=== PATIENT | female | born 1965 | race African-American/Black ===

== ENCOUNTER 2016-10-21 15:35 | Emergency (ER) | payer OTHER ==
[~2016-10-21] VITALS: Ht 165.1 cm; Wt 100.0 kg
[~2016-10-21 15:35] MED LIST: ALBU1AER INH; ALBU8I INH; CENTTAB9 PO; FISH500C PO; GLUCTAB PO; IBUP800 PO; MAXZ25 PO; OMEP20TA PO; POTA-243 PO; PRAV80 PO; SYMB80AE INH; VASO10TA8 PO
[2016-10-21 15:38] VITALS: BP 141/84; PULSE 84; RESP 16; TEMP 97.8; O2SAT 98
--- NOTE | 2016-10-21 17:13 | PD ---
HPI Chief Complaint: Pain: Acute or Chronic Time Seen by Provider: 17:12 Travel History International Travel<30 days: No Contact w/Intl Traveler<30days: No Traveled to known affect area: No History of Present Illness HPI Patient comes in for evaluation of pain and swelling in her right foot that began after using a foot massager yesterday. Patient has pain is a discomfort in the medial aspect of her right foot is worse with walking. Patient denies doing anything for this. Denies any numbness and tingling or direct trauma. PFSH Past Medical History Arthritis: Yes Asthma: Yes Autoimmune Disease: No Blood Disorders: No Anxiety: Yes Depression: No Heart Rhythm Problems: Yes (MURMUR) Cancer: No Cardiovascular Problems: Yes (htn) High Cholesterol: Yes Chemotherapy: No Chest Pain: Yes Congestive Heart Failure: No COPD: No Cerebrovascular Accident: No Coronary Artery Disease: Yes Diabetes: Yes Diminished Hearing: No Endocrine: Yes Gastrointestinal Disorders: Yes Genitourinary: No Headaches: Yes Hepatitis: No Hiatal Hernia: No Hypertension: Yes Immune Disorder: No Musculoskeletal: Yes Neurologic: No Psychiatric: No Reproductive: No Respiratory: Yes (LUNG CA R LUNG, LOWER LOBE REMOVED 2004) Immunizations Current: Yes Myocardial Infarction: No Radiation Therapy: No Schizophrenia: Yes Seizures: Yes Sickle Cell Disease: Yes Sleep Apnea: Yes (USES CLFEX) Thyroid Disease: No PNEUMOCCOCAL Vaccine (Year): 2 : 1 Para: 0 Miscarriage: 0 : 0 Past Surgical History Abdominal Surgery: No AICD: No Appendectomy: Yes Cardiac Surgery: No Ear Surgery: No Endocrine Surgery: No Eye Surgery: No Genitourinary Surgery: Yes Gynecologic Surgery: Yes (PARTIAL HYSTERECTOMY (1993), FULL HYSTERECTOMY (2011) ) Hysterectomy: Yes Joint Replacement: Yes (BILATERAL TOTAL KNEE REPLACEMENT) Neurologic Surgery: No Oral Surgery: No Pacemaker: No Thoracic Surgery: Yes (RIGHT LUNG BX AND REMOVAL LOWER LOBE 2004) Other Surgery: Yes Social History Alcohol Use: No Tobacco Use: No (QUIT) Substance Use: No Allergies-Medications (Allergen,Severity, Reaction): Coded Allergies: Latex (Verified Allergy, Severe, 10/21/16) Morphine (Verified Allergy, Severe, HIVES, 10/21/16) Oxycodone (Verified Allergy, Severe, HALLUCINATION, 10/21/16) *MDRO Multi-Drug Resistant Organism (Verified Allergy, Unknown, 10/21/16) MRSA 08/2013 Reported Meds & Prescriptions Reported Meds & Active Scripts Active Naprosyn (Naproxen) 500 Mg Tab 500 Mg PO Q12HR PRN Review of Systems Except as stated in HPI: all other systems reviewed are Neg Physical Exam Narrative GENERAL: Well-developed, overly nourished, in no acute distress, and non-ill appearing. SKIN: Warm and dry. HEAD: Atraumatic. Normocephalic. EYES: Pupils equal and round. EOMI. No scleral icterus. No injection or drainage. ENT: No nasal bleeding or discharge. Mucous membranes pink and moist. NECK: Trachea midline. Supple. No nuclear rigidity. CARDIOVASCULAR: Dorsal pulses 2+, intact, and equal bilaterally. Capillary refill less than 2 seconds. RESPIRATORY: No accessory muscle use. No respiratory distress. MUSCULOSKELETAL: No obvious deformities. No clubbing. No cyanosis. No edema. Full range of motion. Ankle: Neagative anterior draw and Napier test. Negative Ann Marie's sign. No laxity noted with passive inversion and eversion of BL ankles. Negative squeeze test. Pulses equal BL distal to injury. Capillary refill less than 2 seconds distal to injury and equal BL. Sensation equal BL 1st web space. FROM of toes distal to injury and equal BL. NV intact distal to injury and equal BL. Dorsal pulses equal BL. Tenderness and soft tissue swelling noted medial aspect of right foot proximally. NEUROLOGICAL: Awake and alert. No obvious cranial nerve deficits. Motor grossly within normal limits. Normal speech. PSYCHIATRIC: Appropriate mood and affect; insight and judgment normal. Data Data Last Documented VS Vital Signs Date Time Temp Pulse Resp B/P Pulse Ox O2 Delivery O2 Flow Rate FiO2 10/21/16 15:38 97.8 84 16 141/84 98 Orders Foot, Complete ([id number]) (10/21/16 ) Ice/Cold Pack (10/21/16 17:11) Splint Or Brace Apply/Monitor (10/21/16 18:04) MDM Medical Decision Making Medical Screen Exam Complete: Yes Emergency Medical Condition: Yes Differential Diagnosis Fracture, strain, contusion, other Narrative Course There is no clinical evidence for fracture. There is no clinical evidence to suspect bony injury by exam. Radiographic examination revealed no fracture seen at this time. No obvious ligamental injury or internal derangement is noted at this time. The distal extremity appears neurovascularly intact, without evidence of neurovascular injury nor compartment syndrome. Tendon exam also was intact. The effected limb was splinted. The patient was discharged on pain medication along with sprain and splint care instructions and given warnings for vascular compromise. The patient is to follow up with primary care provider and/or merchandising team lead. The patient agrees with plan. Patient in no obvious distress upon re-evaluation. All pertinent Radiology result(s) discussed with patient. Patient was asked if they wanted to speak to my attending, which the patient did not wish to do at this time. Any questions/ concerns in reference to patient diagnosis/condition discussed and clarified prior to patient's discharge. Reinforced sheer importance of close follow up with patient's primary physician or primary care clinic. Instructed patient to return to ED immediately, if symptoms return/worsen. Pt showed understanding of above instructions. Further instructions and recommendations were detailed in discharge paperwork. Pt ambulated without difficulty out of ED at discharge. Diagnosis Primary Impression: Right foot pain Referrals: Kary Li DPM Patient Instructions: Foot Sprain (ED), General Instructions Additional Instructions: Follow-up with your primary care physician and/or merchandising team lead in 3-5 days reevaluation. Take all medication as prescribed. Apply ice affected area 20 minutes prior as needed for pain. Wear Rusty wrap as needed for comfort. Return to the emergency department if symptoms get worse. Med/Other Pt SpecificInfo: Prescription(s) given Scripts Naproxen (Naprosyn)500 Mg [id number] Mg PO Q12HR PRN (PAIN SCALE 1 TO 10) #10 TAB Ref 0 Prov:Travis Velasco MD 10/21/16 Disposition: 01 DISCHARGE HOME Condition: Stable Jordan Dyer Oct 21, 2016 17:13
--- NOTE | 2016-10-21 17:51 | RADRPT ---
EXAM DATE/TIME: 10/21/2016 17:35 [facility] COMPARISON: No previous studies available for comparison. INDICATIONS : Right foot pain post twisting. MEDICAL HISTORY : None. SURGICAL HISTORY : None. ENCOUNTER: Initial ACUITY: 1 day PAIN SCORE: 4/10 LOCATION: Right medial foot. FINDINGS: Diffuse soft tissue swelling is noted around the foot. There are mild primary degenerative changes of the metatarsal bones. No acute fracture or joint dislocation. There is hallux valgus angulation at t he first metatarsal-phalangeal joint. No foreign bodies are demonstrated. Small heel spur. CONCLUSION: Diffuse nonspecific soft tissue swelling around the foot. No acute fracture or dislocation. Madi Thomson MD on October 21, 2016 at 17:48 Board Certified Radiologist. This report was verified electronically.
[2016-10-21] MEDS ORDERED: NAPR500 PO (18:06)
== END 2016-10-21 18:24 | disposition home or self-care (01) ==
LOC: NEPB 15:35
DX: M79.671 Pain in right foot (principal); M79.89 Other specified soft tissue disorders; J45.909 Unspecified asthma, uncomplicated; E78.00 Pure hypercholesterolemia, unspecified; I10 Essential (primary) hypertension
CPT/HCPCS: 73630; 99283

== ENCOUNTER 2016-12-19 12:03 | Emergency (ER) | payer OTHER ==
[~2016-12-19] VITALS: Ht 165.1 cm; Wt 97.5 kg
[~2016-12-19 12:03] MED LIST changes: -ALBU1AER INH; -ALBU8I INH; -CENTTAB9 PO; -FISH500C PO; -GLUCTAB PO; -IBUP800 PO; -MAXZ25 PO; +NAPR500 PO; -OMEP20TA PO; -POTA-243 PO; -PRAV80 PO; -SYMB80AE INH; -VASO10TA8 PO
[2016-12-19 12:06] VITALS: BP 209/98; PULSE 87; RESP 18; TEMP 97.9; O2SAT 98
--- NOTE | 2016-12-19 12:21 | PD ---
Physical Exam Time Seen by Provider: 12:19 Narrative 51 yo F c/o left sided upper and lower back pain from moving dressers on the job yesterday. Denies fever, vomiting. Has HTN and did not take BP meds this morning. Patient stable. Patient seen in triage. Awaiting bed placement. Data Data Last Documented VS Vital Signs Date Time Temp Pulse Resp B/P Pulse Ox O2 Delivery O2 Flow Rate FiO2 12/19/16 12:06 97.9 87 18 209/98 98 MDM Supervised Visit with CHAPIN: Melissa Cordon Dec 19, 2016 12:21
[2016-12-19] MEDS ORDERED: DICL75TA PO (12:43)
[2016-12-19] MEDS ORDERED: ENAL10TA PO (12:43)
[2016-12-19] MEDS ORDERED: ATOR40TA16 PO (12:43)
[2016-12-19] MEDS ORDERED: OMEP20TA PO (12:43)
[2016-12-19] MEDS ORDERED: METF500T PO (12:43)
[2016-12-19] MEDS ORDERED: TRIA37.5 PO (12:43)
[2016-12-19 12:46] VITALS: BP 163/81; PULSE 89; RESP 18; O2SAT 97
[2016-12-19] MEDS ORDERED: KETOROLAC TROMETHAMINE 60 MG/2 ML (IM) VIAL IM ONE (13:00)
[2016-12-19] MEDS ORDERED: NAPR250T57 PO (13:03)
[2016-12-19] MEDS ORDERED: CYCL1TAB29 PO (13:03)
--- NOTE | 2016-12-19 13:03 | PD ---
HPI Chief Complaint: Back/ Neck Pain or Injury Time Seen by Provider: 12:34 Travel History International Travel<30 days: No Contact w/Intl Traveler<30days: No Traveled to known affect area: No History of Present Illness HPI 50 year-old woman presents emergent from clinic back pain. 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 She is moving dressers yesterday to clean behind them. States after that she felt a pull in her back and she's had back pain ever since. It was worse this morning so she came to the emergency department. Pain is more in her left back, in the upper back next her shoulder blade rating of late on the lower back. No numbness tingling or weakness. She's had back problems in the past. No other complaints. History Past Medical History Narrative Medical Diabetes Hypertension on hyperlipidemia Heart murmur PNEUMOCCOCAL Vaccine (Year): 2 : 1 Para: 0 Social History Alcohol Use: No Tobacco Use: No (QUIT) Allergies-Medications (Allergen,Severity, Reaction): Coded Allergies: Latex (Verified Allergy, Severe, 12/19/16) Morphine (Verified Allergy, Severe, HIVES, 12/19/16) Oxycodone (Verified Allergy, Severe, HALLUCINATION, 12/19/16) *MDRO Multi-Drug Resistant Organism (Verified Allergy, Unknown, 12/19/16) MRSA 08/2013 Reported Meds & Prescriptions Reported Meds & Active Scripts Active Naprosyn (Naproxen) 500 Mg Tab 500 Mg PO Q12HR PRN Reported Atorvastatin (Atorvastatin Calcium) 40 Mg Tab 40 Mg PO HS Omeprazole 20 Mg Tab 40 Mg PO DAILY Triamterene-Hydrochlorothiazide 37.5-25 Mg Tab 1 Tab PO DAILY Enalapril (Enalapril Maleate) 10 Mg Tab 10 Mg PO DAILY Diclofenac Sodium DR (Diclofenac Sodium) 75 Mg Tabdr 75 Mg PO BID Metformin (Metformin HCl) 500 Mg Tab 500 Mg PO DAILY With a meal Review of Systems Except as stated in HPI: all other systems reviewed are Neg Physical Exam Narrative GENERAL: Well-developed, well-nourished, no acute distress. SKIN: Warm and dry. CARDIOVASCULAR: Warm and well perfused. RESPIRATORY: Normal rate and effort. MUSCULOSKELETAL: Normal appearance of back and bilateral lower extremities. No ecchymosis, swelling, bruising. No rashes. Normal muscle bulk and tone. NEUROLOGICAL: Strength full 5/5 and equal in bilateral lower extremities in proximal and distal muscle groups. 5/5 in large toe flexion and extension. Sensation is intact to light touch throughout. Reflexes symmetric. No clonus. PSYCHIATRIC: Appropriate mood and affect; insight and judgment normal. Data Data Last Documented VS Vital Signs Date Time Temp Pulse Resp B/P Pulse Ox O2 Delivery O2 Flow Rate FiO2 12/19/16 12:46 89 18 163/81 97 12/19/16 12:06 97.9 Orders Ketorolac Inj (Toradol Inj) (12/19/16 13:00) [facility] Medical Decision Making Medical Screen Exam Complete: Yes Emergency Medical Condition: Yes Differential Diagnosis Extremities sprain, herniated disc, pulled muscle, other Narrative Course Medical decision making 50 year-old woman with a back strain. Looks well. Recommend anti- inflammatories and muscle relaxers. Diagnosis Primary Impression: Back strain Departure Forms: Tests/Procedures, Work Release Enter return to work date: Dec 23, 2016 Additional Instructions: Take naproxen as prescribed for pain. Take Flexeril as needed for muscle spasms and back pain. Return to the emergency department for any new or worsening symptoms. Med/Other Pt SpecificInfo: Prescription(s) given Scripts Cyclobenzaprine (Flexeril)10 Mg Tab10 Mg PO TID PRN (MUSCLE SPASM) #21 TAB Prov:Travis Velasco MD 12/19/16 Naproxen (Naprosyn)250 Mg [id number] Mg PO BID #14 TAB Prov:Travis Velasco MD 12/19/16 Disposition: 01 DISCHARGE HOME Condition: Stable Travis Velasco MD Dec 19, 2016 13:03
[2016-12-19 13:41] VITALS: BP 154/84; PULSE 67; RESP 16; O2SAT 98
== END 2016-12-19 14:10 | disposition home or self-care (01) ==
LOC: NEPD 12:03
DX: S29.012A Strain of muscle and tendon of back wall of thorax, initial encounter (principal); I10 Essential (primary) hypertension; X50.0XXA Overexertion from strenuous movement or load, initial encounter; Y93.E9 Activity, other interior property and clothing maintenance; Y99.0 Civilian activity done for income or pay
CPT/HCPCS: 96372; 99283; J1885